=== PATIENT | male | born 1980 | race Caucasian/White ===

== ENCOUNTER 2023-04-08 15:40 | Emergency (ER) | payer BC, SELFPAY ==
[2023-04-08 15:41] VITALS: BP 168/96
--- NOTE | 2023-04-08 16:10 | ED.GENMED ---
History of Present Illness
General
Chief Complaint: Abdominal Symptoms
Source: patient
Exam Limitations: none
Time Seen by Provider: 04/08/23 15:44
Nursing documentation reviewed up to this point in time: agreed with
Travel History
Have you had any contact with someone who has COVID-19?: No
Do you have any symptoms of coronavirus? Fever > 100 degrees, chills, cough, shortness of breath, sore throat, loss of taste or smell, muscle aches, or headache?: No
History of Present Illness
History of Present Illness:
Patient is a 42-year-old male with history of appendectomy who presents to the ER complaining right upper quadrant pain which started about 1 hour ago after eating pizza bagels. He reports he does feel pain to his back. He denies any nausea
vomiting. He had this previously but it did resolve on its own. That time he did not seek medical treatment. He denies any urinary frequency urgency or dysuria. Denies any obvious hematuria.
Past History
Past History
ED Past Medical History: None
ED Past Surgical History: Appendectomy
Social History
Tobacco: Non-smoker
Alcohol: Occasional
Personal:
Living: with family
Employment: Employed
Family History
Family History: Other (Noncontributory); Negative CAD
Review of Systems
Review of Systems
Allergies reviewed?: Yes
All Other Systems: ROS reviewed and negative except as documented in HPI and ROS
Constitutional: Reports no symptoms; Denies fever, fatigue or chills
Respiratory: Reports no symptoms
Cardiac: Reports no symptoms
ABD/GI: Reports abdominal pain; Denies nausea, vomiting, diarrhea or constipated
: Reports no symptoms; Denies flank pain, urgency or discharge
Musculoskeletal: Reports no symptoms
Skin: Reports no symptoms
Neurological: Reports no symptoms
Psychiatric: Reports no symptoms
Phy Exam
General Physical Exam
General Presentation: no apparent distress
General age: appears stated age
General Skin: warm and dry
General Habitus: normal
General Mental: alert
General Hydration: appears well hydrated
Gastrointestinal Exam
Gastrointestinal Exam: soft and other (ruq tenderness )
Neurological Exam
Neurological Exam: alert and oriented x3
Musculoskeletal Exam
Musculoskeletal Exam: full ROM
Skin Exam
Skin Exam: normal color and warm/dry
Psychiatric Exam
Psychiatric Exam: normal mood/affect
Course
Orders/Labs/Results
Orders:
Orders
04/08/23 15:50
US Abdomen Complete/Upper Urgent
Comment:
Reason For Exam: ruq pain
04/08/23 15:51
Electrocardiogram (*1) Stat
Reason for Study: Other
Other Reason for Exam: chest pain
EKG- Treatment ONCE
IV Insert/Care/Rem.- Treatment PRN
Ketorolac [Toradol] 15 mg IV NOW STA
04/08/23 16:11
Complete Blood Count/With Diff Urgent
Comprehensive Metabolic Panel Urgent
Lipase Urgent
Urinalysis Reflex To Culture Urgent
Date Specimen was Collected: 04/08/23
Time Specimen was Collected: 16:06
Urine Microscopic Reflex Cult Urgent
04/08/23 18:08
Vital Signs- Treatment ONCE
Frequency: Once
Abnormal Lab Results
04/08/23
16:11
WBC 3.3 L 10^3/uL
(4.8-10.8)
MPV 10.5 H fL
(7.4-10.4)
Absolute Lymphs (auto) 0.9 L 10^3/uL
(1.2-3.4)
BUN 21 H mg/dl
(9-20)
Glucose 122 H mg/dl
(70-99)
Total Bilirubin 2.7 H mg/dl
(0.2-1.3)
Leukocyte Esterase Rfl Trace A
(Negative)
Urine Bacteria (Reflex) Few A
(Negative)
04/08/23 16:11
04/08/23 16:11
Vital Signs
Initial and Last Documented VS:
Initial Vital Signs
Temp Pulse Resp BP Pulse Ox
98.0 F 69 16 168/96 98
04/08/23 15:41 04/08/23 15:41 04/08/23 15:41 04/08/23 15:41 04/08/23 15:41
Last Documented Vital Signs
Temp Pulse Resp BP Pulse Ox
98.0 F 69 16 168/96 98
04/08/23 15:41 04/08/23 15:41 04/08/23 15:41 04/08/23 15:41 04/08/23 15:41
MDM/Problems Addressed
Differential Diagnosis Includes:
Not limited to biliary colic, reflux, less likely pancreatitis
MDM/Problems Addressed:
Patient is a 42-year-old male who presented with right upper quadrant pain after eating pizza bagels. He had this previous in the past but did not seek medical attention.
Patient presents mildly uncomfortable was given Toradol which did improve symptoms. Labs reviewed patient's bilirubin is 2.7. This is unchanged compared to previous bilirubins. Otherwise normal LFTs, white count minimally low at 3.3 negative UA.
Ultrasound shows gallbladder adenomyomatosis small polyp cholelithiasis but no sonographic evidence for acute cholecystitis no biliary ductal dilatation. Patient reexamined feels much better.
Likely biliary colic will DC with outpatient surgery and family doctor.
*Radiology
Radiology exam reviewed: radiology read reviewed (Gallbladder adeno myomatosis, small polyps cholelithiasis no definite sonographic evidence for acute cholecystitis no bile ductal dilatation)
*Pulse Oximetry
Patient hypoxic: no
*Critical Care Note
Total Time (30-74mins, 75-104mins- exclusive of procedures): Not Applicable
ED Attending Note
-
Portions of this chart may have been created with voice recognition software.� Occasional wrong word or��sound alike� substitutions may have occurred due to the inherent limitations of voice recognition software.
Discharge Plan
Departure
Patient Disposition: Home (Routine Discharge)
Date of Disposition: 04/08/23
Time of Disposition: 18:08
Patient with high blood pressure during this ER visit?: Yes
Discharge Problem:
Biliary colic
Instructions: [place] Diet, Gallstones (DC), BLOOD PRESSURE
Prescriptions:
No Action
diclofenac sodium 75 MG tablet,delayed release (DR/EC)
75 mg PO BID PRN (Reason: pain, take with food) Qty: 24 0RF
Referrals:
Alexis Mathias DO [Family Provider] -
Elio Gautam MD [Active] -
Activity Restrictions/Additional Instructions:
As discussed bland diet for the next several days. Follow-up closely with family doctor in the next several days as well as surgery. Please give surgery a call tomorrow to schedule an appointment.. Return however to the ER if any worsening of
symptoms
Interventions
Interventions:
*ED COVID-19 Vaccine History Last Done: 04/08/23 15:41
[2023-04-08] MEDS: TORADOL 15 MG IV (16:11)
[2023-04-08 16:21] LABS: Urine Albumin Negative (Neg - Trace); Urine Bilirubin Negative (Negative); Urine Character Clear (Clear); Urine Color Yellow; Urine Glucose Negative (Negative); Urine Ketone Negative (Negative); Urine Leukocyte Trace (Negative); Urine Nitrite Negative (Negative); Urine Occult Blood Negative (Negative); Urine Specific Gravity 1.015 (<1.030); Urine Urobilinogen 1+ (Neg - 1+)
[2023-04-08 16:25] LABS: % Basophils 0.6 % (0-2); % Immature Granulocytes 0.3 % (0-0.5); % Lymphocytes 28.4 % (20.5-51.1); % Monocytes 9.1 % (1.7-9.3); % Neutrophils 58.6 % (42.2-75.2); Absolute Eosinophils 0.1 10^3/uL (0-0.7); Absolute Lymphocytes 0.9 10^3/uL (1.2-3.4); Absolute Monocytes 0.3 10^3/uL (0.1-0.6); Absolute Neutrophils 1.9 10^3/uL (1.4-6.5); Hematocrit 40.3 % (39.0-52.0); Hemoglobin 14.7 g/dL (13.0-18.0); Mean Corp Hgb Conc. 36.5 g/dL (33.0-37.0); Mean Corpuscular Hgb 29.8 pg (27.0-31.0); Mean Corpuscular Volume 81.6 fL (80.0-94.0); Mean Platelet Volume 10.5 fL (7.4-10.4); Nucleated Red Blood Cells % 0 % (-); Platelet Count 147 10^3/uL (130-400); Red Blood Cell Count 4.94 10^6/uL (4.70-6.10); Red Cell Dist. Width 12.8 % (11.5-14.5); White Blood Cell Count 3.3 10^3/uL (4.8-10.8)
[2023-04-08 16:32] LABS: ALT (SGPT) 29 U/L (0-50); AST (SGOT) 30 U/L (17-59); Albumin 4.1 g/dl (3.5-5.0); Alkaline Phosphatase 46 U/L (38-126); Blood Urea Nitrogen 21 mg/dl (9-20); Calcium 9.5 mg/dl (8.4-10.2); Carbon Dioxide 29 mmol/L (22-30); Chloride 102 mmol/L (98-107); Glucose 122 mg/dl (70-99); Potassium 4.1 mmol/L (3.5-5.1); Sodium 137 mmol/L (135-145); Total Bilirubin 2.7 mg/dl (0.2-1.3); Total Protein 6.6 g/dl (6.3-8.2); eGFR > 60.00
[2023-04-08 16:42] LABS: Urine Bacteria Few (Negative); Urine Squamous Cell 0-2 /LPF (Few)
[2023-04-08 16:44] LABS: Urine White Cell 0-2 /HPF (0-5)
[2023-04-08 16:45] LABS: Urine Red Blood Cell 0-2 /HPF (0-2)
[2023-04-08 16:52] LABS: Lipase 265 U/L (23-300)
[2023-04-08 18:18] VITALS: BP 136/79
== END 2023-04-08 18:35 | disposition home or self-care (01) ==
LOC: EMR 15:40
PROVIDERS: Nurse Practitioner; EMERGENCY PHYSICIAN Student in an Organized Health Care Education/Training Program; FAMILY PHYSICIAN Family Medicine
DX: K80.50 Calculus of bile duct without cholangitis or cholecystitis without obstruction (principal); R03.0 Elevated blood-pressure reading, without diagnosis of hypertension; Z88.0 Allergy status to penicillin
CPT/HCPCS: 99284; 96374; 76700; 80053; 81003; 81015; 83690; 85025; 93005

== ENCOUNTER 2023-05-15 06:19 | Day surgery (SDC) | payer BC, SELFPAY ==
[2023-05-15 08:35] VITALS: BMI 25.2
[2023-05-15 08:40] VITALS: BP 126/80
[2023-05-15 08:59] VITALS: BMI 25.2
[2023-05-15] MEDS: NORMOSOL-R 1000 IV (09:00)
[2023-05-15] MEDS: TYLENOL 1000 MG PO (09:00)
--- NOTE | 2023-05-15 11:24 | W.SUR.PREOP ---
Pre-Operative Surgical Note
-
I have examined this patient prior to the performance of the scheduled procedure.
The patient's condition is unchanged from the time of the current History and
Physical and the patient is able to undergo the scheduled procedure.
[2023-05-15 11:25] VITALS: BP 125/76; BP 126/80
--- NOTE | 2023-05-15 11:25 | W.IMMPOSTOP ---
Surgical Immed Post Op Note
-
Primary Surgeon: Evna Perez MD
Assisting Surgeon: None
Pre-op Diagnosis: Biliary colic
Post-op Diagnosis: Same
Procedure Performed: Laparoscopic cholecystectomy with cholangiogram
Anesthesia Type: General
Specimen / Cultures: Gallbladder and contents
Estimated Blood Loss: 7 cc
Complications: None
Operative Findings: Fairly normal-appearing gallbladder. Critical view of safety obtained prior to a cholangiogram which demonstrated no distal filling defects and normal biliary anatomy.
--- NOTE | 2023-05-15 11:27 | OR.RPT ---
Operative Report
Operative Report
Patient Name: Marlon Clement
: 1980
Date of Operation: 05/15/2023
Preoperative Diagnosis: Symptomatic Cholelithiasis
Postoperative Diagnosis: Same
Procedure(s):
Laparoscopic Cholecystectomy with Cholangiogram
Surgeon(s):
Dr. Perez
Programming Engineer(s):
None
Anesthesia: General
Estimated Blood Loss: 7 cc
Urine Output: None
Drains/Lines/Implants: None
Specimens:
1. Gallbladder and contents
HPI/Surgical Indications:
This is a 42-year-old male who presents with abdominal pain. Exam, labs and imaging are consistent with symptomatic cholelithiasis. Risks/Benefits/Alternatives were discussed at length, and the patient agreed to proceed with surgery.
Findings:
The patient was noted to have minimal evidence of gallbladder inflammation with only mild edema in the cystic triangle. A Critical View of Safety was obtained. Cholangiogram showed no filling defects in the biliary system with the Left, Right
Anterior, Right posterior hepatic ducts, CHD, cystic duct and CBD all identified. There was brisk flow of dye into the duodenum.
Procedure Description:
The patient was brought to the Operating Room and placed in the supine position. IV antibiotics were infused and sequential compression devices were confirmed to be on. Following uneventful induction of general endotracheal anesthesia, an
orogastric tube was placed. The abdomen was prepped and draped in the usual sterile fashion. The abdomen was entered using an infraumbilical open Marlena technique with a 12 mm trochar. Pneumoperitoneum to 15 mmHg pressure was obtained without
difficulty and we confirmed that no injury had occurred during our entry. The patient was positioned in reverse trendelenberg and rotated with the right side up slightly. Three (3) 5mm trocars were then placed along the right subcostal margin. A
locking grasping forceps was placed on the fundus of the gallbladder where it was then retracted cephalad and to the right. Using appropriate grasping instruments, the peritoneum overlying the triangle of Calot was incised. The cystic
duct/gallbladder junction was identified, dissected circumferentially. The cystic artery was identified medially and was dissected circumferentially. A critical view was obtained. A clip was then placed on the cystic duct/gallbladder junction and
an intraoperative cholangiogram performed using fluoroscopy, which showed good flow of dye into the duodenum. There were no intra- or extrahepatic bile duct filling defects. The biliary anatomy appeared normal. Following completion of the
cholangiogram, the catheter was removed. Two clips were then placed proximally on the cystic duct and the duct divided. Two clips were placed proximally and one distally on the cystic artery, and the artery was divided. Remaining soft tissue
attachments of the gallbladder to the liver bed were then divided using electrocautery. There was no spillage of bile or stones. The gallbladder bed was inspected and excellent hemostasis was obtained. The gallbladder was extracted through the 12
mm trocar site using an endocatch bag. The abdomen was again irrigated and excellent hemostasis was assured. All remaining trocars were then removed and the pneumoperitoneum was evacuated. The 12 mm trocar site was closed using a figure of 8 of 0
PDS. All trocar sites were closed at the skin level using 4-0 Monocryl followed by Dermabond. Overall, the patient tolerated the procedure well and was taken to the Recovery Room postoperatively in stable condition.
I was the attending physician and performed the procedure with no assistance. I was present for all portions of the case
Eavn Perez MD
[2023-05-15 11:30] VITALS: BP 119/77
[2023-05-15 11:45] VITALS: BP 120/89
[2023-05-15 12:00] VITALS: BP 123/84
[2023-05-15 12:15] VITALS: BP 121/84
== END 2023-05-15 12:33 | disposition home or self-care (01) ==
LOC: SDS 06:19
PROVIDERS: ATTENDING PHYSICIAN Surgery
DX: K80.10 Calculus of gallbladder with chronic cholecystitis without obstruction (principal); K80.70 Calculus of gallbladder and bile duct without cholecystitis without obstruction
CPT/HCPCS: 47563; 88304; 74300; 76000; A4300

== ENCOUNTER 2024-04-11 07:03 | Emergency (ER) | payer BC, SELFPAY ==
[2024-04-11] VITALS (7 sets, daily range): BP systolic 126–162; BP diastolic 78–93; BMI 27.1
--- NOTE | 2024-04-11 07:53 | ED.GENMED ---
History of Present Illness
General
Chief Complaint: Chest Pain
Time Seen by Provider: 04/11/24 07:52
History of Present Illness
History of Present Illness:
TIME OF INITIAL ENCOUNTER: 7:55 AM
HPI: Patient presents with chest discomfort that started about 5 days ago. He has been going to the gym with no chest discomfort while exertion. Last night approximate 12 hours ago, his symptoms worsened to the point that he was having trouble
sleeping and he would have waves of episodes that would wake him from sleep.
EXAM:
GENERAL: Well appearing in no distress
HEENT: Moist oral mucosa
CARDIOVASCULAR: No murmurs, normal heart rate, regular rhythm, No chest wall tenderness
PULMONARY: No respiratory distress, breath sounds are clear and equal
ABDOMEN: Soft with no peritoneal signs, no tenderness
NEUROLOGIC: Excellent strength all extremities, no coordination deficits
PSYCHIATRIC: Appropriate mental status, normal insight and judgement
EXTREMITIES: Nontender, no edema, moves all extremities equally
SKIN: No rash, no lesions
NUMBER AND COMPLEXITY OF PROBLEMS ADDRESSED AT THE ENCOUNTER
� Chronic conditions affecting care: No significant past medical history, has had cholecystectomy, no history of high blood pressure, no diabetes, no hyperlipidemia, never smoked, no family history of premature CAD
� Acute Exacerbation and/or Progression of Chronic Illness: This is an acute problem
� Differential Diagnosis includes: Chest wall pain, GERD, anxiety, ACS
AMOUNT AND/OR COMPLEXITY OF DATA TO BE REVIEWED AND ANALYZED
� I performed an independent evaluation of and my interpretation is:
EKG: Sinus 79, no acute ST abnormality
CT:
X-rays: Chest x-ray unremarkable
Laboratory Studies: Troponin less than 0.012, total bili elevated 2.5 but other LFTs normal (this is chronic)
Other:
� Review of other/old records: The patient was seen here in May 2023 and had cholecystectomy at that time
� Clinical information was obtained by an independent historian: None needed
� Prescriptions/Medications Considered but not given:
� Further testing considered but not performed:
RISK OF COMPLICATIONS AND/OR MORBIDITY OR MORTALITY OF PATIENT MANAGEMENT
� Social determinants of health affecting care: Lives at home
� Discussion with other providers:
� Escalation of care including admission/observation vs risk of discharge considered: Troponin despite 12 hours of symptoms is unremarkable with normal EKG and no other cardiac risk factors
ANY OTHER UPDATES:
11 AM: I reassessed patient. Patient reports no significant improved after Toradol was given. The symptoms have been ongoing for several days before worsening last night. Relatively low suspicion for ACS but will have patient follow-up with
board winder as outpatient. Appears very comfortable at time of discharge.
Past History
Past History
ED Past Medical History: None
ED Past Surgical History: Appendectomy
Social History
Tobacco: Non-smoker
Alcohol: Occasional
Personal:
Living: with family
Employment: Employed
Family History
Family History: Other (Noncontributory); Negative CAD
Phy Exam
Physical Exam
Physical Exam:
See HPI
Scores
Heart Score for Chest Pain Patients
STEMI patient?: Not applicable
Course
Orders/Labs/Results
Orders:
Orders
04/11/24 07:07
Electrocardiogram (*1) Urgent
Reason for Study: Chest Pain
EKG- Treatment ONCE
04/11/24 07:40
Complete Blood Count/With Diff Urgent
Comprehensive Metabolic Panel Urgent
Lipase Urgent
Troponin I Urgent
04/11/24 08:13
Ketorolac [Toradol] 15 mg IV NOW STA
CR Chest - 2 Views Urgent
Comment:
Reason For Exam: cp
Abnormal Lab Results
04/11/24
07:40
WBC 3.8 L 10^3/uL
(4.8-10.8)
Absolute Lymphs (auto) 1.1 L 10^3/uL
(1.2-3.4)
Eosinophils % 9.5 H %
(0-6)
Glucose 108 H mg/dl
(70-99)
Total Bilirubin 2.5 H mg/dl
(0.2-1.3)
04/11/24 07:40
04/11/24 07:40
Vital Signs
Initial and Last Documented VS:
Initial Vital Signs
Temp Pulse Resp BP Pulse Ox
36.9 C 99 18 162/91 99
04/11/24 07:05 04/11/24 07:05 04/11/24 07:05 04/11/24 07:05 04/11/24 07:05
Last Documented Vital Signs
Temp Pulse Resp BP Pulse Ox
36.9 C 68 19 126/78 99
04/11/24 07:05 04/11/24 10:30 04/11/24 10:30 04/11/24 10:00 04/11/24 10:30
*Critical Care Note
Total Time (30-74mins, 75-104mins- exclusive of procedures): Not Applicable
ED Attending Note
-
Portions of this chart may have been created with voice recognition software.� Occasional wrong word or��sound alike� substitutions may have occurred due to the inherent limitations of voice recognition software.
Discharge Plan
Departure
Patient Disposition: Home (Routine Discharge)
Date of Disposition: 04/11/24
Time of Disposition: 11:02
Patient with high blood pressure during this ER visit?: Yes
Discharge Problem:
Chest pain
Instructions: Chest Pain DCA Follow Up, BLOOD PRESSURE
Prescriptions:
No Action
No Current Medications
0
Referrals:
Oral Cali MD [Active] - Follow up in 2-3 days
Alexis Mathias DO [Family Provider] -
Activity Restrictions/Additional Instructions:
Cardiac blood work is normal. EKG is normal. We gave a dose of Toradol to see if this could be related to chest wall inflammation/pain. You can also consider trying a 2-week course of [id number] omeprazole in case this could be stomach acid
related. Somebody from Dr. Gibson's group should be calling you to arrange close follow-up.
Interventions
Interventions:
*Risk Screen - Suicide Last Done: 04/11/24 07:05
*General Assessment Last Done: 04/11/24 07:05
*Neglect/Abuse Screening Last Done: 04/11/24 07:05
ED- Fall Risk Assessment Last Done: 04/11/24 08:24
*ED COVID-19 Vaccine History Last Done: 04/11/24 07:40
ED- Cardiac Assessment Last Done: 04/11/24 08:24
Discharge Date and Time
Print Language: PORTUGUESE
[2024-04-11 08:02] LABS: % Basophils 0.8 % (0-2); % Eosinophils 9.5 % (0-6); % Immature Granulocytes 0.3 % (0-0.5); % Monocytes 7.4 % (1.7-9.3); Absolute Eosinophils 0.4 10^3/uL (0-0.7); Absolute Lymphocytes 1.1 10^3/uL (1.2-3.4); Absolute Monocytes 0.3 10^3/uL (0.1-0.6); Hematocrit 42.4 % (39.0-52.0); Hemoglobin 15.1 g/dL (13.0-18.0); Mean Corp Hgb Conc. 35.6 g/dL (33.0-37.0); Mean Corpuscular Hgb 29.9 pg (27.0-31.0); Mean Platelet Volume 10.4 fL (7.4-10.4); Nucleated Red Blood Cells % 0 % (-); Platelet Count 140 10^3/uL (130-400); Red Blood Cell Count 5.05 10^6/uL (4.70-6.10); Red Cell Dist. Width 12.7 % (11.5-14.5); White Blood Cell Count 3.8 10^3/uL (4.8-10.8)
[2024-04-11 08:05] LABS: ALT (SGPT) 30 U/L (0-50); AST (SGOT) 28 U/L (17-59); Albumin 4.4 g/dl (3.5-5.0); Alkaline Phosphatase 55 U/L (38-126); Blood Urea Nitrogen 15 mg/dl (9-20); Calcium 9.6 mg/dl (8.4-10.2); Carbon Dioxide 28 mmol/L (22-30); Chloride 104 mmol/L (98-107); Estimated Creatinine Clearance 106 ml/min; Glucose 108 mg/dl (70-99); Lipase 174 U/L (23-300); Potassium 4.7 mmol/L (3.5-5.1); Sodium 138 mmol/L (135-145); Total Bilirubin 2.5 mg/dl (0.2-1.3); Total Protein 6.4 g/dl (6.3-8.2); eGFR > 60.00
[2024-04-11 08:15] LABS: Troponin I < 0.012 ng/ml
[2024-04-11] MEDS: TORADOL 15 MG IV (08:52)
== END 2024-04-11 11:38 | disposition home or self-care (01) ==
LOC: EMR 07:03
PROVIDERS: EMERGENCY PHYSICIAN Emergency Medicine; FAMILY PHYSICIAN Family Medicine
DX: R07.89 Other chest pain (principal); R03.0 Elevated blood-pressure reading, without diagnosis of hypertension
CPT/HCPCS: 99285; 96374; 71046; 80053; 83690; 84484; 85025; 93005